=== PATIENT | male | born 1980 ===

== ENCOUNTER 2021-03-11 13:17 | Day surgery (SDC) | payer BC | END 2021-03-11 15:29 | disposition home or self-care (01) | LOC: CSHSDC/OP 13:17 | PROVIDERS: ATTEND Family Medicine | DX: Z23 Encounter for immunization (principal); U07.1 COVID-19; E11.9 Type 2 diabetes mellitus without complications | CPT/HCPCS: 96365; J3490; M0243; Q0244 ==